=== PATIENT | female | born 1995 | race Caucasian/White ===

== ENCOUNTER 2018-08-17 16:35 | Emergency (ER) | payer OTHER ==
[~2018-08-17] VITALS: Ht 162.6 cm; Wt 65.8 kg
[~2018-08-17 16:35] MED LIST: IBUP-974 PO
[2018-08-17 16:44] VITALS: BP 122/69
[2018-08-17] MEDS ORDERED: ACETAMINOPHEN EXTRA STRENGTH 500 MG TAB PO ONE (16:55)
[2018-08-17] MEDS ORDERED: IBUPROFEN 400 MG TAB PO ONE (16:55)
--- NOTE | 2018-08-17 17:03 | NUR ---
BIB SELF C/O COUGH WITH PHLEGM X2 WKS, FEVER, HEADACHE, AND BACK PAIN TODAY. PATIENT STATES PAIN OF 6/10 AT THIS TIME. PATIENT POSITIONED FOR COMFORT; HOB ELEVATED; BEDRAILS UP X2; BED DOWN. ER MD MADE AWARE OF PT STATUS.
[2018-08-17 18:42] VITALS: BP 102/68
--- NOTE | 2018-08-17 18:42 | NUR ---
Patient discharged with v/s stable. Written and verbal after care instructions given and explained. Patient alert, oriented and verbalized understanding of instructions. Ambulatory with steady gait. All questions addressed prior to discharge. ID band removed. Patient advised to follow up with PMD. Rx of KEFLEX&VENTOLIN& PROMETHAZINE given. Patient educated on indication of medication including possible reaction and side effects. Opportunity to ask questions provided and answered.
== END 2018-08-17 18:42 | disposition home or self-care (01) ==
LOC: MED 16:35
DX: J20.9 Acute bronchitis, unspecified (principal); N39.0 Urinary tract infection, site not specified; Z79.899 Other long term (current) drug therapy
CPT/HCPCS: 71045; 81002; 81025; 87086; 99284; Q0092

== ENCOUNTER 2019-01-21 23:26 | Emergency (ER) | payer OTHER ==
[~2019-01-21] VITALS: Ht 162.6 cm; Wt 64.4 kg
[2019-01-22 00:05] VITALS: BP 116/79
[2019-01-22 02:20] VITALS: BP 112/71
== END 2019-01-22 02:20 | disposition home or self-care (01) ==
LOC: MED 23:26
DX: H57.89 Other specified disorders of eye and adnexa (principal); Z79.1 Long term (current) use of non-steroidal anti-inflammatories (NSAID)
CPT/HCPCS: 99282

== ENCOUNTER 2023-08-27 13:00 | Emergency (ER) | payer SELFPAY ==
[~2023-08-27] VITALS: Ht 162.6 cm; Wt 61.2 kg
[2023-08-27 13:09] VITALS: BP 106/48; PULSE 90; RESP 18; TEMP 98.5; O2SAT 99
[2023-08-27] MEDS ORDERED: KETOROLAC 30 MG/ML VIAL IVP ONE (13:30)
[2023-08-27 13:59] LABS: BASOPHILS % (AUTO) 0.2 % (0.0-2.0); EOSINOPHILS # (AUTO) 0.1 K/uL (0-0.4); HEMATOCRIT 36.6 % (36-48); HEMOGLOBIN 12.8 g/dL (12.0-16.0); LYMPHOCYTES # (AUTO) 1.7 K/uL (2.5-16.5); LYMPHOCYTES % (AUTO) 19.4 % (20.5-51.1); MEAN CORPUSCULAR HEMOGLOBIN 32 pg (27-31); MEAN CORPUSCULAR HGB CONC 35 g/dL (33-37); MEAN CORPUSCULAR VOLUME 91.1 fL (80-94); MONOCYTES # (AUTO) 0.8 K/uL (0.8-1.0); NEUTROPHILS # (AUTO) 6.1 K/uL (1.8-7.7); NEUTROPHILS % (AUTO) 70.4 % (42.2-75.2); PLATELET COUNT (AUTO) 237 K/uL (140-450); RED BLOOD CELL COUNT(AUTO) 4.02 MIL/uL (4.20-5.40); WHITE BLOOD COUNT (AUTO) 8.7 K/uL (4.8-10.8)
[2023-08-27 14:18] LABS: ALBUMIN 3.5 g/dL (3.4-5.0); BILIRUBIN,DIRECT 0.1 mg/dL (0.0-0.3); TOTAL BILIRUBIN 0.3 mg/dL (0.0-1.0)
[2023-08-27 14:19] VITALS: O2SAT 99
[2023-08-27 14:29] LABS: ANION GAP 13.2 (8-16); CALCIUM 8.6 mg/dL (8.5-10.1); CARBON DIOXIDE 24.4 mmol/L (21-32); CREATININE 0.8 mg/dL (0.6-1.3); POTASSIUM 3.6 mmol/L (3.5-5.1)
[2023-08-27] MEDS: ACETAMINOPHEN 325 MG TAB PO ONE (15:02)
[2023-08-27 15:24] LABS: APPEARANCE,URINE CLEAR (CLEAR); BILIRUBIN,URINE NEGATIVE (NEGATIVE); BLOOD, URINE 1+ (NEGATIVE); COLOR,URINE YELLOW (YELLOW); LEUKOCYTE ESTERASE ,URINE TRACE (NEGATIVE); NITRITE, URINE NEGATIVE (NEGATIVE); PH,URINE 6.5 (5.0-9.0); PROTEIN,URINE NEGATIVE (NEGATIVE); UGLUCOSE NEGATIVE (NEGATIVE); UROBILINOGEN,URINE 0.2 EU/dL (0.2 - 1)
[2023-08-27 15:30] LABS: BACTERIA,URINE 2+ /HPF (None Seen); MUCUS,URINE None Seen /LPF (None Seen); SQUAMOUS EPITHELIAL CELL,UR 0-3 (FEW) /LPF (0-3 (FEW)); WBC,URINE 0-5 /HPF (0-5)
[2023-08-27] MEDS ORDERED: CEPH-588 PO (16:46)
[2023-08-27] MEDS ORDERED: PRETAB PO (16:46)
== END 2023-08-27 16:53 | disposition home or self-care (01) ==
LOC: MED 13:00
DX: O26.891 Other specified pregnancy related conditions, first trimester (principal); O46.91 Antepartum hemorrhage, unspecified, first trimester; Z3A.01 Less than 8 weeks gestation of pregnancy; Z79.899 Other long term (current) drug therapy
CPT/HCPCS: 36415; 76817; 80048; 80076; 81001; 81025; 83690; 84702; 85025; 87086; 99284; Q0092